=== PATIENT | female | born 1980 | race African-American/Black ===

== ENCOUNTER → 2020-01-18 | Day surgery (SDC) | payer OTHER, MEDICAID ==
[~2020-01-18] MED LIST: HUMIRA10 MG/0.1 SUBQ; IBUPROFEN 200200 M1 PO; LORCET 5-325 M1 EACH PO; NORCO 5-325 TA1 EACH PO
--- NOTE | ~2020-01-18 | OP ---
[facility] [address] [place] [address] OPERATIVE REPORT Name: MARYSOL CHRISTY Room: [facility]#: [id number] Admission: 01/18/20 Attend Phys: Brian Hensley Discharge: Date of : 84 Report #: [id number] THIS REPORT FOR: //name// cc: Karon Craig MD, Rebecca MD ~ CC: Brian Craig DATE OF SERVICE: 01/18/2020 PREOPERATIVE DIAGNOSIS: Bilateral groin hidradenitis suppurativa. POSTOPERATIVE DIAGNOSIS: Bilateral groin hidradenitis suppurativa. OPERATION: Excision of bilateral groin hidradenitis suppurativa. SURGEON: Brian Hensley MD ANESTHESIA: General. ESTIMATED BLOOD LOSS: Minimal. SPECIMENS: 1. Tissue for pathology. 2. Fluid for culture and sensitivity. DESCRIPTION OF PROCEDURE: After informed consent was obtained, the patient was brought to the operating room and placed supine. SCDs were placed and working, preoperative antibiotics were administered, general anesthesia was induced. The right and left groins were prepped and draped in the usual sterile fashion. She had multiple sinus tracts in her right groin. These were opened up with cautery. I then extended the incision on to the right labia with a 4 x 1 cm incision. There was another area below this and this area was excised with a 1 x 1 cm incision to remove the tract. Attention was then directed to the left groin. Again, a 4 x 1 cm incision was made over the area of multiple pustules. The tissue was excised with cautery. It was then copiously irrigated with normal saline and packed with sterile gauze. Sterile dressings were applied. COMPLICATIONS: None. DISPOSITION: The patient was taken to recovery in satisfactory condition. By: [id number] Hensley MD /nt
[2020-01-18 08:24] LABS: HEMATOCRIT 31.7 % (37.0-47.0); HEMOGLOBIN 10.1 gm/dL (12.0-15.0)
--- NOTE | 2020-01-22 17:07 | PATH ---
[facility] [address] [place] [address] PATHOLOGY RPT PROCEDURE Name: PATY ESTRADA Tri Room: [facility].#: [id number] Admission: 01/18/20 Date of : 84 Discharge: Report #: [id number] Path Case #: [id number] [facility] Accession Number: [id number] . 01 Material submitted: . groin - RIGHT GROIN HIDRADENITIS. Modifiers: right . 01 Clinical history: . BILATERAL GROIN HIDRADENITIS . 02 Diagnosis: Right groin hidradenitis: - Benign skin and subcutaneous fat with features typical of hidradenitis including ulceration, extensive acute and chronic inflammation and fibrosis. (CALLI/db; 01/22/2020) LBQ 01/22/2020 1449 Local . 02 Electronically signed: . Henrry Carrillo MD, Pathologist NPI- [id number] . 01 Gross description: . The specimen is received in formalin, labeled "Paty Estrada, right groin hidradenitis" and consists of a segment of dark potter skin and underlying yellow soft tissue measuring 2.9 x 1.5 x 1.4 cm. Sectioning reveals pink-valentin yellow cut surfaces and the specimen is entirely submitted in A1-A3. (SDY; 01/19/2020) SYU/SYU 01/19/2020 1434 Local . 02 Pathologist provided ICD-10: L98.499, L98.9, L90.5 . 02 CPT . 648497 Specimen Comment: A courtesy copy of this report has been sent to [phone], [phone] Specimen Comment: [phone] Specimen Comment: Report sent to / DR PEREZ Performed at: [address], [place], [place] [id number] MD Jose L Koch MD Phone: [phone] Performed at: 02 [facility] [address], [place], [place] [id number] MD Henrry Carrillo MD Phone: [phone]
== END | disposition home or self-care (01) ==
LOC: M.SUR 07:32
PROVIDERS: ATTEND Surgery
DX: L73.2 Hidradenitis suppurativa (principal); Z79.899 Other long term (current) drug therapy; Z90.49 Acquired absence of other specified parts of digestive tract; Z98.890 Other specified postprocedural states; Z88.8 Allergy status to other drugs, medicaments and biological substances; Z20.828 Contact with and (suspected) exposure to other viral communicable diseases